=== PATIENT | male | born 1960 | race Caucasian/White ===

== ENCOUNTER → 2020-07-06 | Outpatient (CLI) | payer OTHER | END | disposition home or self-care (01) | LOC: RAD 06:02 | PROVIDERS: ATTEND Registered Nurse Registered Nurse First Assistant | DX: M51.24 Other intervertebral disc displacement, thoracic region (principal); G83.4 Cauda equina syndrome; M48.02 Spinal stenosis, cervical region; M48.05 Spinal stenosis, thoracolumbar region | CPT/HCPCS: 72141; 72148 ==

== ENCOUNTER → 2020-07-28 | Outpatient (CLI) | payer OTHER ==
[2020-07-28 12:07] LABS: MICROSCOPIC NOT IND
[2020-07-28 12:09] LABS: BASOPHILS % (AUTO) 1 % (0-1); EOSINOPHILS % (AUTO) 6 % (1-7); LYMPHOCYTES % (AUTO) 19 % (22-44); MD NO; MEAN CORPUSCULAR HEMOGLOBIN 31.5 pg (27.5-34.5); MEAN CORPUSCULAR HGB CONC 35.2 g/dL (33.2-36.2); MONOCYTES % (AUTO) 8 % (2-9); NEUTROPHILS % (AUTO) 67 % (42-75); PLATELET COUNT 253 x10^3/uL (130-400); RED BLOOD COUNT 4.95 x10^6/uL (4.38-5.82); RED CELL DISTRIBUTION WIDTH 13.2 % (9.4-14.8)
[2020-07-28 12:16] LABS: ANION GAP 6 mmol/L (5-15); CALCIUM 9.4 mg/dL (8.5-10.1); CHLORIDE 110 mmol/L (98-107)
[2020-07-28 12:17] LABS: CREATININE 0.97 mg/dL (0.7-1.3)
[2020-07-28 12:18] LABS: INTERNATIONAL NORMALIZED RATIO 1.1 (0.93-1.1); PROTHROMBIN TIME 11.7 Seconds (9.6-11.5)
== END | disposition home or self-care (01) ==
LOC: STAR 11:05
PROVIDERS: ATTEND Neurological Surgery
DX: Z01.810 Encounter for preprocedural cardiovascular examination (principal); M48.062 Spinal stenosis, lumbar region with neurogenic claudication; Z20.822 Contact with and (suspected) exposure to COVID-19
CPT/HCPCS: 36415; 71046; 80048; 81003; 85025; 85610; 85730; 93005; U0003

== ENCOUNTER 2020-08-04 11:00 | Observation (INO) | payer OTHER ==
[~2020-08-04] VITALS: Ht 175.3 cm; Wt 92.6 kg
[~2020-08-04 11:00] MED LIST: BACITRACIN 50,000 UNIT ONE; BUPIVACAINE/PF 0.25% ONE; EPINEPHRINE 1 MG/ML, 1ML ONE; VANCOMYCIN 1,000 MG ONE; methylPREDNISolone SOD SUCC 125 MG/2 ML ONE
[2020-08-04] MEDS ORDERED: BUPIVACAINE/PF 0.25% ONE ×2 (11:08→13:21)
[2020-08-04] MEDS ORDERED: EPINEPHRINE 1 MG/ML, 1ML ONE (11:08)
[2020-08-04] MEDS ORDERED: methylPREDNISolone SOD SUCC 125 MG/2 ML ONE (11:08)
[2020-08-04] MEDS ORDERED: BACITRACIN 50,000 UNIT ONE (11:09)
[2020-08-04] MEDS ORDERED: no home meds per pt (11:29)
[2020-08-04] MEDS ORDERED: CHLORHEXIDINE 15 ML UDC PO ONE (11:30)
[2020-08-04 11:32] VITALS: BP_SYST 149; BP_SYST 174; BP_DIAS 118; BP_DIAS 94
[2020-08-04] MEDS ORDERED: LACTATED RINGERS 1,000 ML IV SCH (12:00)
[2020-08-04] MEDS ORDERED: FENTANYL PF 250 MCG/5ML ONE (13:16)
[2020-08-04] MEDS ORDERED: MIDAZOLAM 1 MG/ML, 2ML ONE (13:17)
[2020-08-04] MEDS ORDERED: FENTANYL PF 100 MCG/2ML ONE ×2 (13:23→16:02)
[2020-08-04] MEDS ORDERED: LABETALOL 5MG/ML, 20ML IV PRN (13:30)
[2020-08-04] MEDS ORDERED: HYDROmorphone 1 MG/ML, 1ML INJ IVPush PRN ×2 (13:30→15:00)
[2020-08-04] MEDS ORDERED: EPHEDRINE 50 MG/ML, 1ML IVPush PRN (13:30)
[2020-08-04] MEDS ORDERED: PROMETHAZINE 25 MG/ML, 1ML IVPush PRN (13:30)
[2020-08-04] MEDS ORDERED: OXYcodone 5 MG/5 ML ORAL.SOL UDC PO PRN (13:30)
[2020-08-04] MEDS ORDERED: ACETAMINOPHEN 325 MG TABLET PO PRN (13:30)
[2020-08-04] MEDS ORDERED: ONDANSETRON 2MG/ML, 2ML IVPush PRN ×2 (13:30→15:00)
[2020-08-04] MEDS ORDERED: FENTANYL PF 100 MCG/2ML IV PRN (13:30)
[2020-08-04] MEDS ORDERED: METHOCARBAMOL 1,000 MG in DEXTROSE 5% 100 ML IV PRN (13:30)
[2020-08-04] MEDS ORDERED: hydrALAzine 20 MG/ML, 1ML IV PRN (13:30)
[2020-08-04] MEDS ORDERED: MEPERIDINE/PF 25MG/0.5ML IVPush PRN (13:30)
[2020-08-04] MEDS ORDERED: LORazepam 2 MG/ML, 1ML IVPush PRN (13:30)
[2020-08-04] MEDS ORDERED: BACITRACIN 50,000 UNIT IM ONE (13:54)
[2020-08-04] MEDS ORDERED: THROMBIN 5,000 UNIT VIAL TP ONE (13:54)
[2020-08-04] MEDS ORDERED: BUPIVACAINE/PF-EPI 0.25% 1:200K INFIL ONE (13:54)
[2020-08-04] MEDS ORDERED: PROPOFOL 50 ML ONE (14:32)
[2020-08-04] MEDS ORDERED: VANCOMYCIN 1,000 MG ONE (14:33)
[2020-08-04] MEDS ORDERED: GLYCOPYRROLATE 0.2MG/1ML, 5ML ONE (14:50)
[2020-08-04] MEDS ORDERED: PROPOFOL 10 MG/ML, 20ML ONE (14:50)
[2020-08-04] MEDS ORDERED: ONDANSETRON 2MG/ML, 2ML ONE (14:50)
[2020-08-04] MEDS ORDERED: ROCURONIUM 10MG/ML,5ML ONE (14:50)
[2020-08-04] MEDS ORDERED: VASOPRESSIN 20 UNIT/ML, 1ML ONE (14:50)
[2020-08-04] MEDS ORDERED: DEXAMETHASONE 4 MG/ML, 1ML ONE (14:50)
[2020-08-04] MEDS ORDERED: NEOSTIGMINE 1 MG/ML, 10ML ONE (14:50)
[2020-08-04] MEDS ORDERED: SUCCINYLCHOLINE 20 MG/ML, 10ML ONE (14:50)
[2020-08-04] MEDS ORDERED: CEFAZOLIN 1,000 MG ONE (14:50)
[2020-08-04] MEDS ORDERED: TIZANIDINE 4MG TABLET PO PRN (15:00)
[2020-08-04] MEDS ORDERED: HYDROcodone/APAP 10/325 MG TABLET PO PRN (15:00)
[2020-08-04] MEDS ORDERED: PROMETHAZINE 25 MG/ML, 1ML IM PRN (15:00)
[2020-08-04] MEDS ORDERED: DIPHENHYDRAMINE 50 MG/ML, 1ML IVPush PRN (15:00)
[2020-08-04] MEDS ORDERED: PHARMACY MAY ADJ FOR RENAL FX MC PRN (15:00)
[2020-08-04] MEDS ORDERED: MEPERIDINE/PF 100 MG/ML IM PRN (15:00)
[2020-08-04] MEDS ORDERED: MAGNESIUM HYDROXIDE 8%, 30ML UDC PO PRN (15:00)
[2020-08-04] MEDS ORDERED: BISACODYL 10 MG SUPP PR PRN (15:00)
[2020-08-04] MEDS ORDERED: METHOCARBAMOL 1,000 MG in DEXTROSE 5% 100 ML IV ONE (15:30)
[2020-08-04] MEDS ORDERED: OXYcodone 5 MG/5 ML ORAL.SOL UDC ONE (16:02)
[2020-08-04] MEDS ORDERED: ACETAMINOPHEN 650 MG/20.3 ML UDC ONE (16:02)
[2020-08-04] MEDS: NS + 20MEQ KCL 1,000 ML IV SCH (18:28)
[2020-08-04 20:12] VITALS: BP 130/83
[2020-08-04] MEDS: OXYcodone/APAP 5/325MG TABLET PO PRN (20:43)
[2020-08-04] MEDS: SODIUM CHLORIDE FLUSH 10ML SYR IVF SCH (21:00)
[2020-08-05 00:03] VITALS: BP 131/81
[2020-08-05] MEDS: CEFAZOLIN PMX 1GM/50ML 50 ML IVPB SCH ×2 (00:07→07:31)
[2020-08-05] MEDS: OXYcodone/APAP 5/325MG TABLET PO PRN ×2 (01:39→07:48)
[2020-08-05] MEDS: NS + 20MEQ KCL 1,000 ML IV SCH (04:31)
[2020-08-05] MEDS: SODIUM CHLORIDE FLUSH 10ML SYR IVF SCH (08:12)
[2020-08-05 08:13] VITALS: BP 134/71
[2020-08-05] MEDS ORDERED: SENNA/DOCUSATE TABLET PO SCH (09:00)
[2020-08-05] MEDS ORDERED: TAMSULOSIN 0.4 MG CAP.ER.24H PO SCH (09:30)
[2020-08-05] MEDS ORDERED: TAMS-11 PO (09:32)
[2020-08-05] MEDS ORDERED: OXYC1TAB14 PO (09:32)
[2020-08-05] MEDS ORDERED: TIZA4TAB2 PO (09:32)
[2020-08-05 13:44] VITALS: BP 131/69
== END 2020-08-05 14:00 | disposition home or self-care (01) ==
LOC: OUT 11:00 → 4NE 16:46 → OUT 23:02 → 4NE 23:02 → DCLOUNGE 08-05 13:52
PROVIDERS: ADMIT Neurological Surgery; ATTEND Neurological Surgery
DX: M48.062 Spinal stenosis, lumbar region with neurogenic claudication (principal); M47.9 Spondylosis, unspecified; M51.36 Other intervertebral disc degeneration, lumbar region; Z87.891 Personal history of nicotine dependence; Z79.899 Other long term (current) drug therapy
CPT/HCPCS: 63030; 63035; 72100; 96361; 96365; 96366; 97162; G0378; J0171; J0330; J0690; J1100; J2250; J2405; J2704; J2710; J3010; J3370; J3480; 76000; J2930